=== PATIENT | female | born 1995 | race Hispanic/Latino ===

== ENCOUNTER → 2024-11-15 | Outpatient (CLI) | payer OTHER ==
--- NOTE | 2024-11-15 14:12 | HMCIMG ---
US ABDOMINAL RUQ\E\LTD HISTORY: ELEVATED LFTS COMPARISON: None FINDINGS: There is moderate hepatic steatosis. There are no focal liver masses. The liver is enlarged at 19 cm.There is a normal-appearing gallbladder. Common duct is normal. Right kidney is normal with no evidence of mass, hydronephrosis or stone.The pancreas appears normal as well. IMPRESSION: 1. Moderate hepatic details cyst, the liver is enlarged at 19 cm.
== END | disposition home or self-care (01) ==
LOC: RAH 10:51
PROVIDERS: ATTEND Clinical Nurse Specialist Family Health
DX: K76.0 Fatty (change of) liver, not elsewhere classified (principal); K76.89 Other specified diseases of liver; R74.01 Elevation of levels of liver transaminase levels
CPT/HCPCS: 76705